=== PATIENT | female | born 1995 | race Two or more races ===

== ENCOUNTER 2024-02-11 02:28 | Inpatient (IN) | payer MEDICAID ==
[~2024-02-11] VITALS: Ht 160 cm; Wt 52.3 kg
[2024-02-11 03:24] LABS: PH,URINE DRUG SCREEN 5.5 (5.0-8.0)
[2024-02-11 03:28] LABS: BASOPHILS % (AUTO) 0.3 % (0.0-2.0); EOSINOPHILS % (AUTO) 0 % (1.0-6.0); HEMATOCRIT 45.4 % (36-46); HEMOGLOBIN 15.5 g/dL (12.0-16.0); LYMPHOCYTES # (AUTO) 1.2 K/uL (1.0-4.8); LYMPHOCYTES % (AUTO) 5.8 % (22.0-44.0); MEAN CORPUSCULAR HGB CONC 34.1 G/dL (31.0-37.0); MEAN CORPUSCULAR VOLUME 97 fL (80-100); MONOCYTES # (AUTO) 1.2 K/uL (0.1-1.0); MONOCYTES % (AUTO) 5.7 % (2.0-9.0); NEUTROPHILS # (AUTO) 17.9 K/uL (1.8-7.7); PLATELET COUNT (AUTO) 291 K/uL (150-450); RED BLOOD CELL COUNT(AUTO) 4.69 MIL/uL (4.00-5.20); RED CELL DISTRIBUTION WIDTH 12.9 % (11.5-14.5); WHITE BLOOD COUNT (AUTO) 20.3 K/uL (4.5-11.0)
[2024-02-11 03:29] LABS: NEUTROPHILS % (AUTO) 88.2 % (40.0-70.0)
[2024-02-11 03:30] LABS: ALCOHOL, URINE DRUG SCREEN NEGATIVE (NEGATIVE); AMPHET/METH SCREEN,URINE NEGATIVE (NEGATIVE); BARBITURATE SCREEN, URINE NEGATIVE (NEGATIVE); BENZODIAZEPINES SCREEN,URINE NEGATIVE (NEGATIVE); CANNABINOID SCREEN,URINE POSITIVE (NEGATIVE); COCAINE SCREEN,URINE NEGATIVE (NEGATIVE); METHADONE SCREEN, URINE NEGATIVE (NEGATIVE); OPIATE SCREEN,URINE NEGATIVE (NEGATIVE); PHENCYCLIDINE SCREEN,URINE NEGATIVE (NEGATIVE)
[2024-02-11 03:37] LABS: CALCIUM, TOTAL 9.4 mg/dL (8.8-10.5); CREATININE 1.1 mg/dL (0.60-1.30)
[2024-02-11 04:06] LABS: COVID AG,FIA SOURCE NASAL SWAB
[2024-02-11] MEDS: IBUPROFEN 600 MG TABLET PO ONE (04:07)
[2024-02-11] MEDS: LORazepam 1 MG TABLET PO ONE (04:07)
[2024-02-11 04:14] LABS: SARS-COV2 (COVID) ANTIGEN,FIA Negative (Negative)
[2024-02-11 06:15] LABS: APPEARANCE,URINE TURBID (CLEAR); BILIRUBIN,URINE NEGATIVE (NEGATIVE); COLOR,URINE LIGHT ORANGE (YELLOW); GLUCOSE, URINE (UA) NEGATIVE (NEGATIVE); LEUKOCYTE ESTERASE ,URINE SMALL (NEGATIVE); OCCULT BLOOD,URINE NEGATIVE (NEGATIVE); PH,URINE 5.5 (5.0-8.0); PROTEIN,URINE 30-70 mg/dL (NEGATIVE); SPECIFIC GRAVITIY, URINE 1.021 (1.003-1.030); UROBILINOGEN,URINE <=1.0 mg/dL (<=1.0)
[2024-02-11 06:30] LABS: AMORPHOUS SEDIMENT,UR Moderate /LPF (None Seen); BACTERIA,URINE Few /HPF (None Seen); NITRATE,URINE NEGATIVE (NEGATIVE); RBC,URINE None Seen /HPF (0-2); SQUAMOUS EPITHELIAL CELL,UR Few /LPF (None Seen)
[2024-02-11 07:47] LABS: BASOPHILS % (AUTO) 0.5 % (0.0-2.0); EOSINOPHILS % (AUTO) 0 % (1.0-6.0); HEMATOCRIT 43.6 % (36-46); LYMPHOCYTES # (AUTO) 1.6 K/uL (1.0-4.8); LYMPHOCYTES % (AUTO) 11.6 % (22.0-44.0); MEAN CORPUSCULAR HEMOGLOBIN 33.4 pg (26.0-34.0); MEAN CORPUSCULAR HGB CONC 34.4 G/dL (31.0-37.0); MEAN CORPUSCULAR VOLUME 97 fL (80-100); MONOCYTES # (AUTO) 0.6 K/uL (0.1-1.0); MONOCYTES % (AUTO) 4.4 % (2.0-9.0); NEUTROPHILS # (AUTO) 11.8 K/uL (1.8-7.7); NEUTROPHILS % (AUTO) 83.5 % (40.0-70.0); PLATELET COUNT (AUTO) 258 K/uL (150-450); RED BLOOD CELL COUNT(AUTO) 4.49 MIL/uL (4.00-5.20); RED CELL DISTRIBUTION WIDTH 12.7 % (11.5-14.5); WHITE BLOOD COUNT (AUTO) 14.1 K/uL (4.5-11.0)
[2024-02-11] MEDS ORDERED: MAGNESIUM HYDROXIDE SUSPENSION 30 ML UDCUP PO PRN (09:30)
[2024-02-11] MEDS ORDERED: HydrOXYzine PAMOATE 50 MG CAPSULE PO PRN (09:30)
[2024-02-11] MEDS ORDERED: TUBERCULIN, PURIFIED PROTEIN DERIVATIVE 5 TU/0.1 ML SYRINGE ID ONE (09:30)
[2024-02-11] MEDS ORDERED: LOPERAMIDE HCL 2 MG CAPSULE PO PRN (09:30)
[2024-02-11] MEDS ORDERED: MAG HYDROX/ALUMINUM HYD/SIMETH ES 30 ML SUSPENSION UDCUP PO PRN (09:30)
[2024-02-11] MEDS ORDERED: GuaiFENesin/D-METHORPHAN [SUGAR-FREE] 200-20MG/10 ML SYRUP UDCUP PO PRN (09:30)
[2024-02-11] MEDS ORDERED: OLANZapine 5 MG RAPDIS TABLET PO PRN (09:30)
[2024-02-11] MEDS ORDERED: PROMETHAZINE HCL 25 MG TABLET PO PRN (09:30)
[2024-02-11] MEDS ORDERED: ACETAMINOPHEN 325 MG TABLET PO PRN (09:30)
[2024-02-11] MEDS ORDERED: LORazepam 2 MG TABLET PO PRN (09:30)
[2024-02-11 11:50] VITALS: BP 132/83; PULSE 100; RESP 18; TEMP 97.3; O2SAT 95
[2024-02-11] MEDS ORDERED: SPIR50TA27 PO (12:10)
[2024-02-11] MEDS: MIRTAZAPINE 15 MG TABLET PO SCH (20:08)
[2024-02-11] MEDS: THIAMINE 100 MG TABLET PO SCH (20:09)
[2024-02-11] MEDS: MELATONIN 5 MG TABLET PO SCH (20:09)
[2024-02-11] MEDS ORDERED: MELATONIN 5 MG TABLET PO SCH (21:00)
[2024-02-11 21:14] VITALS: BP 116/70; PULSE 69; RESP 16; TEMP 98.2; O2SAT 96
[2024-02-12] MEDS: ZOLPIDEM TARTRATE 10 MG TABLET PO PRN (00:44)
[2024-02-12] MEDS: FOLIC ACID 1 MG TABLET PO SCH (08:20)
[2024-02-12] MEDS: OMEGA-3/DHA/EPA/FISH OIL 1,000 MG CAPSULE PO SCH (08:20)
[2024-02-12] MEDS: NALTREXONE HCL 50 MG TABLET PO SCH (08:20)
[2024-02-12] MEDS: MULTIVITAMINS WITH MINERALS, THERAPEUTIC TABLET PO SCH (08:20)
[2024-02-12 09:18] LABS: FREE T4 (FREE THYROXINE) 1.46 ng/dL (0.76-1.46); THYROID STIMULATING HORMONE 1.42 uIU/mL (0.36-3.74)
[2024-02-12 09:25] LABS: HEMOGLOBIN A1C 5.3 % (3.8-5.6)
[2024-02-12 09:41] VITALS: BP 128/83; PULSE 98; RESP 16; TEMP 97.8; O2SAT 96
[2024-02-12 20:44] VITALS: BP 122/81; PULSE 72; RESP 16; TEMP 98; O2SAT 97
[2024-02-13 09:00] VITALS: BP 110/71; PULSE 89; RESP 18; TEMP 97.3; O2SAT 97
[2024-02-13] MEDS ORDERED: OLAN5TAB94 PO (14:48)
[2024-02-13] MEDS ORDERED: MIRT-89 PO (14:48)
[2024-02-13] MEDS ORDERED: MELA5TAB40 PO (14:48)
[2024-02-13] MEDS ORDERED: NALT50TA33 PO (14:48)
== END 2024-02-13 20:28 | disposition home or self-care (01) | DRG 751 ==
LOC: EMS 02:28 → CANBEDREQ 07:13 → B3A 08:56
PROVIDERS: ADMIT Psychiatry & Neurology Psychiatry; ATTEND Psychiatry & Neurology Psychiatry
PROC: GZHZZZZ Group Psychotherapy (ICD-10-PCS; principal; 2024-02-12)
PROC: GZ58ZZZ Individual Psychotherapy, Cognitive-Behavioral (ICD-10-PCS; 2024-02-12)
DX: F32.2 Major depressive disorder, single episode, severe without psychotic features (principal); R45.851 Suicidal ideations; R73.9 Hyperglycemia, unspecified; E78.5 Hyperlipidemia, unspecified; Z20.822 Contact with and (suspected) exposure to COVID-19; Z88.0 Allergy status to penicillin
CPT/HCPCS: 71045; 80048; 80061; 80307; 81001; 83036; 84439; 84443; 84703; 85025; 86592; 99285; 36415-L1; 36415-TC